=== PATIENT | female | born 1940 | race Caucasian/White ===

== ENCOUNTER → 2021-04-30 15:15 | Outpatient (CLI) | payer MEDICARE, SELFPAY ==
--- NOTE | ~2021-04-30 | XR_ITS ---
EXAMINATION: XR knee LT 3V DATE: 04/30/2021 16:05 INDICATION: Left knee pain TECHNIQUE: Three views of the left knee were obtained. COMPARISON: None. FINDINGS: Alignment is normal. No fracture or osteochondral lesion. There is moderate narrowing in th e medial compartment and mild narrowing of the lateral and patellofemoral compartments. Chondrocalcin osis is noted. No joint effusion/synovitis. Soft tissues are unremarkable. IMPRESSION: 1. 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 Reviewed, dictated and finalized at location A. OY FILLER
--- NOTE | ~2021-04-30 | XR_ITS ---
EXAMINATION: XR knee RT 3V DATE: 04/30/2021 16:05 INDICATION: Right knee pain TECHNIQUE: Three views of the right knee were obtained. COMPARISON: None. FINDINGS: Alignment is normal. No fracture or osteochondral lesion. There is moderate narrowing of th e medial compartment and mild narrowing of the lateral and patellofemoral compartments. Chondrocalcin osis is noted. No joint effusion/synovitis. Soft tissues are unremarkable. IMPRESSION: 1. Tricompartmental osteoarthritis, worse in the medial compartment. Reviewed, dictated and finalized at location A. D HELP
== END ==
DX: M17.0 Bilateral primary osteoarthritis of knee (principal)
CPT/HCPCS: 73562

== ENCOUNTER → 2021-05-03 11:54 | Outpatient (CLI) | payer MEDICARE, SELFPAY ==
--- NOTE | ~2021-05-03 | XR_ITS ---
EXAMINATION: XR ankle RT min 3V, XR foot RT min 3V DATE: 05/03/2021 13:25 INDICATION: Acute onset right foot and ankle pain TECHNIQUE: 1. Anteroposterior, mortise, additional oblique and lateral view of the right ankle were obtained. 2. Dorsoplantar, two oblique and lateral views of the right foot were obtained. COMPARISON: None. FINDINGS: Alignment of the right foot and ankle is normal. No fracture or osteochondral lesion. Polyarticular o steoarthritis, moderate severity at the talonavicular joint, third and fourth tarsal metatarsal joint s and multiple interphalangeal joints. Mild osteoarthritis at the right ankle and remaining joints in the midfoot, the first metatarsophalangeal joint and remaining interphalangeal joints. Small Marco A s calcaneal and moderate plantar calcaneal spurs with additional mild enthesopathic ossification at t he distal Achilles tendon and proximal plantar aponeurosis. No ankle joint effusion. Atherosclerotic calcific a cyst along the anterior tibial artery. Soft tissue swelling about the ankle most prominent over the lateral malleolus. IMPRESSION: 1. Dr. Swelling at the right ankle most prominent about the lateral malleolus. No acute osseous abnor mality. 2. Degenerative changes including mild to moderate polyarticular osteoarthritis at the right foot and ankle. Reviewed, dictated and finalized at location A. P TECH IMPRESSION: 1. Dr. Swelling at the right ankle most prominent about the lateral malleolus. No acute osseous abnormality. 2. Degenerative changes including mild to moderate polyarticular osteoarthritis at the right foot and ankle.
== END ==
DX: M25.579 Pain in unspecified ankle and joints of unspecified foot (principal); M79.89 Other specified soft tissue disorders
CPT/HCPCS: 73610; 73630

== ENCOUNTER 2023-05-18 14:23 | Outpatient (CLI) | payer MEDICARE, SELFPAY ==
--- NOTE | ~2023-05-18 | XR_ITS ---
EXAMINATION: XR chest 2V Exam Date/Time: 05/18/2023 14:52 CDT HISTORY: Shortness of breath; non smoker, HTN Comparison: None. RESULT: Lines, tubes, and devices: None. Lungs and pleura: Senescent change, otherwise clear. Cardiomediastinal silhouette: Arch calcification, otherwise unremarkable. Other: No acute osseous or upper abdominal finding. IMPRESSION: No acute cardiopulmonary process. Reviewed, dictated and finalized at location K.
== END 2023-05-18 14:24 ==
PROVIDERS: PCP Internal Medicine Cardiovascular Disease; Visit Provider Internal Medicine Nephrology
DX: R06.02 Shortness of breath (principal)
CPT/HCPCS: 71046

== ENCOUNTER 2024-01-19 14:26 | Emergency (ER) | payer MEDICARE, SELFPAY ==
--- NOTE | ~2024-01-19 | CT_ITS ---
EXAMINATION: CT cervical spine wo con DATE: 01/19/2024 14:57 INDICATION: Left neck pain. TECHNIQUE: Computed tomography (CT) of the cervical spine was performed without intravenous contrast. Automated exposure control and iterative reconstruction technique were employed. The dose-length pro duct was 164.69 mGy-cm. COMPARISON: None FINDINGS: Alignment is normal. Vertebral body heights are normal. There is mildly decreased disc heig ht at C2-C3, severely decreased disc height at C3-C4, mildly decreased disc height at C4-C5, severely decreased disc height at C5-C6, and mildly decreased disc height at C6-C7. The following disc levels are specifically discussed: C2-C3: There is no uncovertebral joint osteoarthritis. There is mild right and severe left facet join t osteoarthritis. There is mild left neural foraminal stenosis. There is mild central canal stenosis. C3-C4: There is severe bilateral uncovertebral joint osteoarthritis. There is severe bilateral facet joint osteoarthritis. There is mild bilateral neural foraminal stenosis. There is mild central canal stenosis. C4-C5: There is mild bilateral uncovertebral joint osteoarthritis. There is severe bilateral facet cricket int osteoarthritis. There is mild bilateral neural foraminal stenosis. There is mild central canal st enosis. C5-C6: There is severe bilateral uncovertebral joint osteoarthritis. There is severe bilateral facet joint osteoarthritis. There is mild bilateral neural foraminal stenosis. There is mild central canal stenosis. C6-C7: There is severe bilateral uncovertebral joint osteoarthritis. There is severe bilateral facet joint osteoarthritis. There is moderate right and mild left neural foraminal stenosis. There is mild central canal stenosis. C7-T1: There is no uncovertebral joint osteoarthritis. There is severe bilateral facet joint osteoart hritis. There is mild bilateral neural foraminal stenosis. There is no central canal stenosis. IMPRESSION: 1. Severe cervical spondylosis. Reviewed, dictated and finalized at location A. [employer]
[2024-01-19 14:36] VITALS: BP 171/60; PULSE 64; RESP 17; TEMP 36.8; O2SAT 99
--- NOTE | 2024-01-19 14:38 | ECG_ITS ---
Test Date: 2024-01-19 14:43:01 Measurements Intervals [place] Rate: 62 P: 33 [place]: 196 QRS: 15 QRSD: 112 T: 51 QT: 400 QTc: 408 Interpretive Statements SINUS RHYTHM INCOMPLETE LEFT BUNDLE BRANCH BLOCK DELAYED PRECORDIAL R/S TRANSITION MINIMAL Q WAVES- INFERIOR LEADS ABNORMAL ECG No previous ECG available for comparison Electronically Signed On 01-19-2024 14:54:51 [employer] by Mahendra Gomez D.O.
--- NOTE | 2024-01-19 14:44 | ED.NECK ---
HPI - Neck Pain/Injury General Chief Complaint: Neck Pain/Injury Stated Complaint: neck pain Time Seen by Provider: 01/19/24 14:44 Focused HPI: This is a 84 year old female that presents to the ER for left sided neck pain. Ongoing for the last 2 days. No known injuries. She has not taken anything for pain. Worse with certain movement. Relieved with rest. Denies decreased ROM or numbness. GENERAL: Elderly, well-nourished, and in no acute distress. HEAD: Normocephalic, atraumatic. CHEST: Clear to auscultation. ?No respiratory distress. HEART: Regular rate and rhythm.? NEURO: ?Alert and oriented x3. Patient screened in triage and initial orders placed.? ?Additional care and disposition to be based upon?diagnostic testing and treatment. Related Data Allergies Allergy/AdvReac Type Severity Reaction Status Date / Time aspirin Allergy Unknown Verified 01/19/24 14:28 gadobenic acid Allergy Hives Verified 01/19/24 14:28 [From contrast - MRI] RED CT SCAN DYE Allergy Unknown HIVES, Uncoded 04/28/17 19:55 RASH, BLOOD PRESSURE RAISES Course Vital Signs Vital signs: Vital Signs Temperature 98.2 F 01/19/24 14:36 Pulse Rate 64 01/19/24 14:36 Respiratory Rate 17 01/19/24 14:36 Blood Pressure 171/60 H 01/19/24 14:36 Pulse Oximetry 99 01/19/24 14:36 Oxygen Delivery Room Air 01/19/24 14:36 Temperature 98.2 F 01/19/24 14:36 Pulse Rate 64 01/19/24 14:36 Respiratory Rate 17 01/19/24 14:36 Blood Pressure 171/60 H 01/19/24 14:36 Pulse Oximetry 99 01/19/24 14:36 Oxygen Delivery Room Air 01/19/24 14:36 Discharge Plan Discharge Follow-up/Referrals: Nancy,ZARA Harman [Primary Care Provider] -
[2024-01-19] MEDS: ACETAMINOPHEN 500 MG TABLET 1000 MG PO (15:51)
--- NOTE | 2024-01-19 15:51 | PC.NURSE ---
Pt reports neck pain to left that radiates to left shoulder for 4 days. pt unable to take Ibuprofen due to gastrectomy & kidney disease. States Extra Strength Tyl not helping. Noted tightness to pt left neck & left shoulder with palpation
--- NOTE | 2024-01-19 17:37 | ED_ITS ---
HPI - Neck Pain/Injury General Chief Complaint: Neck Pain/Injury Stated Complaint: neck pain Time Seen by Provider: 01/19/24 14:44 History of Present Illness HPI Narrative: 84 y/o Female presents to the emergency department for left neck pain and shoulder pain since yesterday. Patient states she noticed it throughout the day states it became more noticeable all driving her car. She states it is worth with certain positions and better at rest. She describes the pain as a dull ache. States she took Tylenol earlier this morning with some improvement. Patient reports a history of breast cancer in 2016 where she underwent double mastectomy and chemotherapy. She has been in remission for breast cancer since but recently received news that she now has stomach cancer. States she was diagnosed with stomach cancer in October of 2023 and underwent a gastrectomy in November 2023. She denies fever, chest pain or shortness of breath, radicular symptoms, weakness or numbness of the arm or hand, tingling, hand clumsiness, numbness in her right, bowel or bladder incontinence or retention. Denies injury or trauma. Related Data Allergies Allergy/AdvReac Type Severity Reaction Status Date / Time aspirin Allergy Unknown Verified 01/19/24 14:28 gadobenic acid Allergy Hives Verified 01/19/24 14:28 [From contrast - MRI] RED CT SCAN DYE Allergy Unknown HIVES, Uncoded 04/28/17 19:55 RASH, BLOOD PRESSURE RAISES Review of Systems Review of Systems: All systems reviewed & are unremarkable except as noted in HPI and below Exam Narrative: GENERAL: Well-appearing, well-nourished, and in no acute distress. HEAD: Normocephalic, atraumatic. EYES: EOMI. ENT: Nares clear, no rhinorrhea or epistaxis. Mucous membranes moist. NECK: No significant midline cervical spinous tenderness, step-offs or deformities. Tenderness along the left trapezius with palpable muscle spasm extending from the base of the skull into the left shoulder. No overlying skin changes or obvious deformity. Full active and passive range of motion of shoulder and left upper extremity. Sensation intact throughout. Radian, median, ulnar axillary nerves intact. CHEST: Clear to auscultation. No respiratory distress. HEART: Regular rate and rhythm. No murmur heard. Normal peripheral pulses. ABDOMEN: Soft, nontender, nondistended, normal active bowel sounds. EXTREMITIES: Normal range of motion. No edema. Strength 5/5 in BUE and BLE. Sensation intact throughout. SKIN: Warm, dry, no rash. NEURO: No focal deficits. Alert and oriented x3 Course Vital Signs Vital signs: Vital Signs Temperature 98.2 F 01/19/24 14:36 Pulse Rate 64 01/19/24 14:36 Respiratory Rate 17 01/19/24 14:36 Blood Pressure 171/60 H 01/19/24 14:36 Pulse Oximetry 99 01/19/24 14:36 Oxygen Delivery Room Air 01/19/24 14:36 Temperature 98.2 F 01/19/24 14:36 Pulse Rate 64 01/19/24 14:36 Respiratory Rate 17 01/19/24 14:36 Blood Pressure 171/60 H 01/19/24 14:36 Pulse Oximetry 99 01/19/24 14:36 Oxygen Delivery Room Air 01/19/24 14:36 MDM - Neck Pain/Injury MDM Narrative Medical decision making narrative: 84-year-old female presents emergency department for left-sided neck/shoulder pain for 1 day. No injury or trauma. Denies radicular symptoms. Vitals with hypertension 171/60, otherwise unremarkable. She denies signs or symptoms of ACS, therefore this is less likely. Additionally her symptoms are better at rest, worse with position changes were consistent with MSK etiology. She denies signs or symptoms of radicular symptoms. She is neurovascularly intact on exam. No signs of meningismus, she is afebrile. EKG obtained in triage shows sinus rhythm with a rate of 62 bpm, incomplete bundle-branch block, no ST elevations or depressions. CT cervical spine shows severe cervical spondylosis. Her exam shows no significant tenderness to his cervical spine but does reveal tenderness with palpable muscle spasm to the left trapezius which is likely source of symptoms. She has no signs of myelopathy. I discussed findings workup with the patient. Plan to treat her with low-dose Flexeril, lidocaine patches and Tylenol. I strongly encouraged close follow-up with her PCP discussed strict ED return precautions. She is agreeable with the plan verbalized understanding. Discharged in stable condition. Discharge Plan Discharge Clinical Impression: Spasm of left trapezius muscle, Cervical spondylosis Patient Disposition: Home, Self-Care Condition: Stable Instructions: Antibiotic Form, Neck Pain (ED) Additional Instructions: Your evaluated in the emergency department for neck and shoulder pain. Your exam reveals a palpable muscle spasm in the trapezius muscles which is likely the source of her pain. CT scan of your neck shows significant arthritis and degenerative changes. Please take Tylenol [id number] as needed for sympt oms. Take the muscle relaxers and lidocaine patches as needed. Please follow- up closely with her primary care provider. Return to the emergency department if you develop a fever, numbness, weakness in your hands or arms, lose control of her bowel or bladder, or other concerning symptoms. Prescriptions: New cyclobenzaprine 10 mg tablet 10 mg PO TID PRN (Reason: muscle spasm) Qty: 14 0RF lidocaine 5 % adhesive patch,medicated 1 patch topical DAILY Qty: 15 0RF Rx Instructions: leave on most painful area for up to 12 hrs. do not use more than 1 patch in a 24-hour period. Follow-up/Referrals: Nancy,ZARA Harman [Primary Care Provider] -
[2024-01-19] MEDS: LIDOCAINE 5% PATCH 1 PATCH TRANSDERM (18:21)
[2024-01-19] MEDS: CYCLOBENZAPRINE HCL 10 MG TABLET 5 MG PO (18:21)
[2024-01-19 18:29] VITALS: BP 114/63; PULSE 72; RESP 16; O2SAT 98
== END 2024-01-19 18:30 | disposition home or self-care (01) ==
PROVIDERS: Emergency Provider Physician Assistant; PCP Physician Assistant
DX: M62.830 Muscle spasm of back (principal); M47.812 Spondylosis without myelopathy or radiculopathy, cervical region; Z85.3 Personal history of malignant neoplasm of breast; C16.9 Malignant neoplasm of stomach, unspecified; R94.31 Abnormal electrocardiogram [ECG] [EKG]
CPT/HCPCS: 72125; 93005; 99284; A9270

== ENCOUNTER 2024-11-13 11:02 | Emergency (ER) | payer MEDICARE, SELFPAY ==
[2024-11-13 11:11] VITALS: BP 151/63; PULSE 69; RESP 20; TEMP 36.9; O2SAT 100
--- NOTE | 2024-11-13 11:13 | ED.EYEPROB ---
HPI - Eye Problem General Chief complaint: Eye Problems Stated complaint: poked self in eye Patient presents to the [facility] brought by daughter for complaints of burning and left eye and sensitivity to light and left eye with minimal watering/ drainage that began yesterday. Patient noted poking herself in this left eye with her mascara wound. Patient reports she has done this multiple times and has sustained a corneal abrasion. Patient believes that this is what is going on. Patient did use some lubricating drops at home and held a cool compress on her this morning and did have some relief of symptoms. Denies headache, dizziness, loss of vision or blurry vision. Related Data Allergies Allergy/AdvReac Type Severity Reaction Status Date / Time aspirin Allergy Unknown Verified 11/13/24 11:18 gadobenic acid (From Allergy Hives Verified 11/13/24 11:18 contrast - MRI) RED CT SCAN DYE Allergy Unknown HIVES, Uncoded 11/13/24 11:18 RASH, BLOOD PRESSURE RAISES Review of Systems Constitutional: Constitutional: Reports as per HPI, Denies chills, Denies fatigue, Denies fever(s) and Denies weakness Eyes: Eyes: Reports as per HPI, Denies change in vision and Reports photophobia Comments: Drainage and burning left eye only ENT: Denies vertigo, Denies dizziness, Denies nasal congestion and Denies sore throat Cardiovascular: Cardiovascular: Reports no additional cardiovascular complaints Respiratory: Respiratory: Reports no additional respiratory complaints Gastrointestinal: Gastrointestinal: Reports no additional gastrointestinal complaints Genitourinary: Genitourinary: Reports no additional female genitourinary complaints Musculoskeletal: Musculoskeletal: Reports no additional musculoskeletal complaints Integumentary/Breasts: Skin/Breast: Reports system reviewed and no additional complaints, except as docu Neurologic: Reports system reviewed and no additional complaints, except as documented Psychiatric: Psychiatric: Reports no additional psychiatric complaints Endocrine: Endocrine: Reports no additional endocrine complaints Hematologic/Lymphatic: Hematologic/Lymphatic: Reports no additional hematologic/lymphatic complaints Allergic/Immunologic: Allergic/Immunologic: Reports no additional allergic/immunologic complaints Exam Const: General: healthy appearing and no acute distress Nutritional Appearance: well nourished Orientation/consciousness: patient oriented x3 Limitations: no limitations HENMT: Head: normal to inspection Ears: external ears normal and TM's normal bilaterally Eyes: Conjunctivae: conjunctival abnormality ( minimal injection) left Pupils: Equal, round and reactive pupils present EOM: EOMs intact bilaterally Direct Ophthalmoscopy: photophobia ( left only) Other: minimal tearing noted. No foreign body observed Neck: Neck: normal visual inspection and no lymphadenopathy Resp: Effort & Inspection: normal respiratory effort Auscultation: clear to auscultation bilaterally Cardio: Rate: regular rate Rhythm: regular rhythm Skin: General skin exam: normal color Rashes: no rashes Wounds: no wounds Neuro: General: patient oriented x3 Cranial nerves: Yes Nystagmus not present Speech: normal speech Gait exam (Neuro): Normal gait present Psych: Mental Status: mental status grossly normal Affect: normal affect Attitude: cooperative Course Course Level of Care: Express Care Visit Vital Signs Vital signs: Vital Signs Temperature 98.4 F 11/13/24 11:11 Pulse Rate 11/13/24 11:11 Respiratory Rate 11/13/24 11:11 Blood Pressure 151/63 H 11/13/24 11:11 Pulse Oximetry 100 11/13/24 11:11 Oxygen Delivery Room Air 11/13/24 11:11 Temperature 98.4 F 11/13/24 11:11 Pulse Rate 11/13/24 11:11 Respiratory Rate 11/13/24 11:11 Blood Pressure 151/63 H 11/13/24 11:11 Pulse Oximetry 100 11/13/24 11:11 Oxygen Delivery Room Air 11/13/24 11:11 MDM - Eye Problem MDM Narrative Medical decision making narrative: patient requesting numbing eyedrops at this time just for pain relief until taking antibiotic eyedrops pharmacy. Various times corneal abrasion. Patient does have a eye doctor to follow up with an as-needed The patient was evaluated by myself in the [facility] care. History is obtained from patient who is an independent historian and physical exam was performed. Available medical records were reviewed at this time. Exam findings show no acute concerns or changes; patient is non-toxic appearing and is in no distress. Patient is appropriate for outpatient treatment and follow-up. I have evaluated and discussed social determinants of health with the patient that could potentially impact subsequent diagnosis and treatment plans. Differential diagnosis and treatment plan were discussed with the patient. Patient agrees with discussion and after shared medical decision making agrees with plan of care. All questions were answered to the patient's satisfaction. Differential Diagnosis Differential diagnosis: Likely corneal abrasion, conjunctivitis, periorbital cellulitis, subconjunctival hemorrhage, corneal ulcer and ruptured globe Medical Records Attestation: I reviewed the patient's medical records. Discharge Plan Discharge Clinical Impression: Abrasion of cornea, left Patient Disposition: Home Condition: Stable Instructions: Antibiotic Form, Corneal Abrasion (ED) Additional Instructions: the abrasion or scratch on your eye will heal on its own within 2-3 days. Eye drops as prescribed. -Do this for 3 to 4 days until all Discomfort has disappeared. -Cold compresses to the affected eye for comfort -When cleaning the eyes used a washcloth/cotton ball in one direction then change washcloths/cotton ball before using it on another eye. -Do not share medicine--do not touch the eye with the medicine -Alternate or take Tylenol or ibuprofen as directed in the bottle for pain Follow-up with PCP or referral management liaison if condition is not improving in 3-5days or sooner if you have new symptoms/concerns. Patient Language: Ugandan Prescriptions: New polymyxin B sulf-trimethoprim 10,000 unit- 1 mg/mL drops 1 drp LEFT EYE Q3H 7 Days Qty: 10 0RF Rx Instructions: while awake; do not exceed 6 doses in 24 hours Follow-up/Referrals: Nancy,ZARA Harman [Primary Care Provider, Unknown] Time of Disposition: 11:35
[2024-11-13] MEDS: TETRACAINE HCL 0.5% OPHTH SOLN 4 ML BTL 4 DROP LEFT EYE (11:35)
== END 2024-11-13 11:39 | disposition home or self-care (01) ==
PROVIDERS: Emergency Provider Nurse Practitioner Family; PCP Physician Assistant
DX: S05.02XA Injury of conjunctiva and corneal abrasion without foreign body, left eye, initial encounter (principal); W22.8XXA Striking against or struck by other objects, initial encounter
CPT/HCPCS: 99213; G0463